=== PATIENT | male | born 1985 | race Two or more races ===

== ENCOUNTER 2016-04-12 06:42 | Emergency (ER) | payer SELFPAY ==
[~2016-04-12] VITALS: Ht 182.9 cm; Wt 79.4 kg
[2016-04-12 06:50] VITALS: BP 122/74
[2016-04-12] MEDS ORDERED: TDAP [DIPH/PERTUSSIS/TET] 0.5 ML VIAL IM ONE ×2 (07:00→07:03)
== END 2016-04-12 07:40 | disposition home or self-care (01) ==
LOC: ER 06:46
DX: S61.211A Laceration without foreign body of left index finger without damage to nail, initial encounter (principal); W26.0XXA Contact with knife, initial encounter; Y93.89 Activity, other specified; Y92.89 Other specified places as the place of occurrence of the external cause; Y99.8 Other external cause status
CPT/HCPCS: 12001; 90471; 90715; 99283; A4606; A6402 ×2; Z7610